=== PATIENT | male | born 1990 | race Caucasian/White ===

== ENCOUNTER 2019-03-08 07:56 | Emergency (ER) | payer SELFPAY ==
[2019-03-08] VITALS (10 sets, daily range): BP systolic 114–140; BP diastolic 62–90; PULSE 82–113; RESP 11–24; O2SAT 94–100
--- NOTE | 2019-03-08 08:11 | ED_ITS ---
HPI - Altered Mental Status General Chief Complaint: Psychiatric Symptoms Stated Complaint: Sitting outside Time Seen by Provider: 03/08/19 07:58 Source: EMS Mode of arrival: EMS History of Present Illness HPI narrative: Patient found sitting outside [place] he apparently is an obliquely there he was found to be yelling intermittently. EMS and police called. Patient brought to the ER for further evaluation. Intermittently he is able to answer questions. On attempt to start IV yelling and screaming ?for the love of God ? Related Data Allergies Allergy/AdvReac Type Severity Reaction Status Date / Time No Known Drug Allergies Allergy Verified 03/08/19 08:22 Review of Systems Review of Systems ROS Unobtainable: Unobtainable due to mental condition Patient History Social History substance use type: methamphetamine Exam Initial Vital Signs Initial Vital Signs: Vital Signs Pulse Rate 109 H 03/08/19 08:25 Respiratory Rate 24 03/08/19 08:25 Blood Pressure 140/85 03/08/19 08:25 Pulse Oximetry 100 03/08/19 08:25 GENERAL: Alert shaking young male poor eye contact HEENT: Head atraumatic,EOMI, pupils reactive, face symmetric CARDIOVASCULAR: Regular rate and rhythm without murmurs, rubs or gallops. RESPIRATORY: Breath sounds equal bilaterally, no wheezes rales or rhonchi. ABDOMEN: Soft, nontender. Normoactive bowel sounds all 4 quadrants. No guarding or rebound. EXTREMITIES: Normal range of motion, no clubbing or edema. Neurovascularly intact NEUROLOGICAL: Moving all extremities alert confused SKIN: Warm, dry, no laceration, no petechiae, no rashes or lesions. No sign of trauma Course Orders Ordered: ED Orders 03/08/19 08:40 Acetaminophen Stat Complete Blood Count AUTO DIFF Stat Comprehensive Metabolic Panel Stat Ethanol (ETOH) Stat Hepatic (Liver) Panel Stat Salicylate Stat 03/08/19 15:40 Urine Drug Screen, Rapid Stat Sodium Chloride (Normal Saline 0.9%) 1,000 mls @ 1,000 mls/hr IV CONT DAYAN Last Infusion: 03/08/19 10:47 Dose: 0 mls/hr Documented by: Admin: 03/08/19 09:51 Dose: 1,000 mls/hr Documented by: [email or web address] Discontinued Medications Diphenhydramine HCl (Benadryl) 50 mg IM NOW ONE Stop: 03/08/19 08:02 Last Admin: 03/08/19 08:24 Dose: 50 mg Documented by: FARRAH Haloperidol (Haldol) 5 mg IM NOW ONE Stop: 03/08/19 08:02 Last Admin: 03/08/19 08:24 Dose: 5 mg Documented by: FARRAH Lorazepam (Ativan) 1 mg IV NOW ONE Stop: 03/08/19 08:00 Last Admin: 03/08/19 09:13 Dose: Not Given Documented by: FARRAH Lorazepam (Ativan) 2 mg IM NOW ONE Stop: 03/08/19 08:02 Last Admin: 03/08/19 08:24 Dose: 2 mg Documented by: FARRAH Vital Signs Vital signs: Vital Signs - 8 hr 03/08/19 09:53 03/08/19 12:00 03/08/19 12:30 Pulse Rate 100 H 107 H 113 H Respiratory Rate 18 23 16 Blood Pressure [Left Arm] 126/77 131/73 114/67 Pulse Oximetry 97 98 97 03/08/19 13:03 03/08/19 13:30 03/08/19 14:00 Pulse Rate 101 H 87 87 Respiratory Rate 20 12 11 L Blood Pressure [Left Arm] 116/90 119/71 118/69 Pulse Oximetry 94 100 100 03/08/19 14:30 03/08/19 15:00 03/08/19 16:49 Pulse Rate 91 H 82 83 Respiratory Rate 13 17 14 Blood Pressure [Left Arm] 114/62 121/70 Pulse Oximetry 99 100 99 MDM - Altered Mental Status Lab Data Attestation: I reviewed the patient's lab results. Result diagrams: 03/08/19 08:40 03/08/19 08:40 Labs: Lab Results 03/08/19 03/08/19 03/08/19 Range/Units 08:40 08:40 15:40 WBC 6.2 (4.5-11.0) X10^3/uL RBC 4.69 (4.5-5.9) X10^6/uL Hgb 14.4 (13.5-17.5) g/dL Hct 41.4 (41-53) % MCV 88.3 (80-100) fL MCH 30.6 (26-34) PG MCHC 34.7 (30-36) % RDW 13.3 (11.6-14.8) % Plt Count 244 (150-400) X10^3/uL Neut % (Auto) 58.5 (50-75) % Lymph % (Auto) 32.0 (25-40) % [place] % (Auto) 6.6 (3-14) % Eos % (Auto) 2.3 (2-4) % Baso % (Auto) 0.6 (0-2) % Neut # (Auto) 3600 (0778-1093) /uL Lymph # (Auto) 2000 (9861-1093) /uL [place] # (Auto) 400 (0-900) /uL Eos # (Auto) 100 (0-450) /uL Baso # (Auto) 0 (0-100) /uL Sodium 140 (137-145) mmol/L Potassium 3.6 (3.4-5.1) mmol/L Chloride 107 (98-107) mmol/L Carbon Dioxide 21 L (22-32) mmol/L BUN 11 (9-20) mg/dL Creatinine 0.80 (0.66-1.25) mg/dL Estimated GFR > 60.0 (>60) mL/min BUN/Creatinine Ratio 13.8 (6-22) Glucose 132 H (70-100) mg/dL Calcium 9.6 (8.4-10.2) mg/dL Total Bilirubin 0.5 (0.2-1.3) mg/dL Conjugated Bilirubin 0.0 (0.0-0.3) md/dL Unconjugated Bilirubin 0.3 (0.0-1.1) mg/dL AST 35 (17-59) IU/L ALT 52 H (<50) IU/L Alkaline Phosphatase 68 (38-126) U/L Total Protein 7.4 (6.3-8.2) g/dL Albumin 4.4 (3.5-5.0) g/dL Globulin 3.0 (1.7-4.1) g/dL Albumin/Globulin Ratio 1.5 (1.0-2.8) Salicylates < 1.0 (<20) mg/dL U Morph 300 ng/mL cutoff Negative (Negative) Ur Oxycodone Screen Negative (Negative) Urine Methadone Screen Negative (Negative) Acetaminophen < 10 L (10-30) ug/mL Ur Barbiturates Screen Negative (Negative) U Tricyclic Antidepress Negative (Negative) Ur Phencyclidine Scrn Negative (Negative) Ur Amphetamines Screen Negative (Negative) U Methamphetamines Scrn Positive H (Negative) Ur MDMA Scrn (Ecstasy) Negative (Negative) U Benzodiazepines Scrn Negative (Negative) Urine Cocaine Screen Negative (Negative) U Marijuana (THC) Screen Negative (Negative) Ethyl Alcohol < 10 ( - 10) mg/dL Urine Dip Bedside Urine Glucose Negative Bedside Urine Bilirubin - Negative Bedside Urine Ketone - Negative Urine Specific [place] 1.020 Bedside Urine Occult Blood - Negative Bedside Urine pH 6.0 Bedside Urine Protein - Negative Bedside Urine Urobilinogen +/- 1mg Bedside Urine Nitrite - Negative Bedside Urine Leukocytes - Negative Esterase MDM Narrative Medical decision making narrative: Nurse tried starting IV and getting blood patient became aggressive be yelling. Police called patient given Ativan, Benadryl and Haldol. Patient had been sleeping for the majority part of the day. At 5:25 p.m. he woke and walked in the ER he has steady gait clear speech does not remember what happened is a expressing need to be discharged. At this time he is clinically sober he states that he has not used methamphetamine in the last 2 days. Discharge Plan Departure Patient Disposition: Home Clinical Impression: Methamphetamine abuse Instructions: DI for Drug Abuse and Drug Addiction Activity Restrictions/Additional Instructions: *You have been diagnosed with methamphetamine abuse *What to do: Stop doing drugs *Continue to take medications as directed *Follow up with your primary care provider in 2-3 days *Return to ER if you should have any new, worsening or concerning symptoms Referrals: [facility] [Outside]
[2019-03-08] MEDS: HALOPERIDOL 5 MG/ML VIAL IM (08:24)
[2019-03-08] MEDS: diphenhydrAMINE 50 MG/ML VIAL IM (08:24)
[2019-03-08] MEDS: LORazepam 2 MG/ML INJ IM (08:24)
[2019-03-08 08:48] LABS: Add Manual Diff / Slide Review NO; Basophils Absolute Auto 0 /uL (0-100); Basophils Percent Auto 0.6 % (0-2); Eosinophils Absolute Auto 100 /uL (0-450); Eosinophils Percent Auto 2.3 % (2-4); Hematocrit 41.4 % (41-53); Hemoglobin 14.4 g/dL (13.5-17.5); Lymphocytes Absolute Auto 2000 /uL (1100-4500); Mean Corpuscular HGB Conc 34.7 % (30-36); Mean Corpuscular Hemoglobin 30.6 PG (26-34); Mean Corpuscular Volume 88.3 fL (80-100); Monocytes Absolute Auto 400 /uL (0-900); Monocytes Percent Auto 6.6 % (3-14); Neutrophils Absolute Auto 3600 /uL (1500-7000); Neutrophils Percent Auto 58.5 % (50-75); Platelet Count 244 X10^3/uL (150-400); Red Blood Cell Count 4.69 X10^6/uL (4.5-5.9); Red Cell Distribution Width 13.3 % (11.6-14.8); White Blood Cell Count 6.2 X10^3/uL (4.5-11.0)
[2019-03-08 09:00] LABS: Acetaminophen < 10 ug/mL (10-30); Alanine Aminotransferase 52 IU/L (<50); Albumin 4.4 g/dL (3.5-5.0); Albumin Globulin Ratio 1.5 (1.0-2.8); Alkaline Phosphatase 68 U/L (38-126); Aspartate Aminotransferase 35 IU/L (17-59); BUN Creatinine Ratio 13.8 (6-22); Bilirubin Total 0.5 mg/dL (0.2-1.3); Bilirubin Unconjugated 0.3 mg/dL (0.0-1.1); Blood Urea Nitrogen 11 mg/dL (9-20); Calcium 9.6 mg/dL (8.4-10.2); Carbon Dioxide 21 mmol/L (22-32); Chloride 107 mmol/L (98-107); Estimated Glomerular Filt Rate > 60.0 mL/min (>60); Ethanol (ETOH) < 10 mg/dL; Glucose 132 mg/dL (70-100); HEMOLYSIS < 15 (0-50); Potassium 3.6 mmol/L (3.4-5.1); Salicylate < 1.0 mg/dL (<20); Sodium 140 mmol/L (137-145); Total Protein 7.4 g/dL (6.3-8.2)
[2019-03-08] MEDS: SODIUM CHLORIDE 0.9% 1,000 ML 1000 ML IV (09:51)
--- NOTE | 2019-03-08 15:41 | PC.NURSE ---
pt was able to follow direction and stand at end of bed. pt reports he lives in [facility] with dad and brother pt having difficulty remembering fathers phone number. gave a number that was disconnected. pt having difficulty staying awake.
[2019-03-08 16:03] LABS: Urine Methamphetamines Positive (Negative)
[2019-03-08 16:04] LABS: UR Morphine/Opiate cutoff 300 Negative (Negative); Ur Creatinine Normal (Normal); Ur Specific Gravity Normal (Normal); Urine Amphetamines Negative (Negative); Urine Barbiturates Negative (Negative); Urine Benzodiazepines Negative (Negative); Urine Cocaine Negative (Negative); Urine MDMA Negative (Negative); Urine Methadone Negative (Negative); Urine Oxycodone Negative (Negative); Urine Phencyclidine Negative (Negative); Urine Tetrahydrocannabinol Negative (Negative); Urine Tricyclic Antidepressant Negative (Negative); Urine pH Normal (Normal)
== END 2019-03-08 17:32 | disposition home or self-care (01) ==
LOC: ED 07-13 13:30
PROVIDERS: Emergency Provider Emergency Medicine
DX: F15.10 Other stimulant abuse, uncomplicated (principal)
CPT/HCPCS: 36415; 80053; 80076; 80305; 80320; 80329; 81003; 85025; 96360; 96372; 99285; G0480; J1200; J1630; J2060